=== PATIENT | female | born 1965 | race Caucasian/White ===

== ENCOUNTER 2016-08-13 02:53 | Emergency (ER) | payer SELFPAY ==
[~2016-08-13] VITALS: Ht 157.5 cm; Wt 108.0 kg
[2016-08-13 02:59] VITALS: Ht 157.5 cm; Wt 108.0 kg
[2016-08-13] MEDS ORDERED: SOD CHLORIDE 0.9% 500 ML IV STA (04:01)
[2016-08-13] MEDS ORDERED: ONDANSETRON 4 MG INJ IV STA (04:01)
[2016-08-13] MEDS ORDERED: morphine 4 MG/ML VIAL IV STA (04:01)
[2016-08-13 04:27] LABS: ADD UMIC YES; UR BILIRUBIN (Dip) NEGATIVE (NEGATIVE); UR BLOOD (Dip) TRACE (NEGATIVE); UR CLARITY CLEAR (CLEAR); UR COLOR LT. YELLOW (YELLOW); UR GLUCOSE (Dip) NEGATIVE (NEGATIVE); UR KETONES (Dip) NEGATIVE (NEGATIVE); UR LEUKOCYTE ESTERASE (Dip) NEGATIVE (NEGATIVE); UR NITRITE (Dip) NEGATIVE (NEGATIVE); UR TOTAL PROTEIN (Dip) NEGATIVE (NEGATIVE); UR UROBILINOGEN (Dip) 0.2 E.U./dL (0.1-1.0)
[2016-08-13 04:40] LABS: ADD SCAN DIFF NO
[2016-08-13 04:43] LABS: BASOPHILS % 0.6 % (0.0-2.0); EOSINOPHILS # 0.2 10^3/ul (0.0-0.5); EOSINOPHILS % 3.2 % (0.0-7.0); HEMOGLOBIN 12.8 g/dl (12.0-16.0); LYMPHOCYTES # 1.8 10^3/ul (0.8-2.9); LYMPHOCYTES % 25.2 % (15.0-51.0); MEAN CORPUSCULAR HEMOGLOBIN 30.5 pg (29.0-33.0); MEAN CORPUSCULAR HGB CONC 33.7 g/dl (32.0-37.0); MEAN CORPUSCULAR VOLUME 90.5 fl (82.0-101.0); MEAN PLATELET VOLUME 9.6 fl (7.4-10.4); MONOCYTE # 0.5 10^3/ul (0.3-0.9); MONOCYTES % 7.3 % (0.0-11.0); NEUTROPHIL # 4.5 10^3/ul (1.6-7.5); NEUTROPHILS % 63.3 % (39.0-77.0); PLATELET COUNT 298 10^3/UL (140-415); RED CELL DISTRIBUTION WIDTH 13.5 % (11.5-14.5); WHITE BLOOD COUNT 7.1 10^3/ul (4.8-10.8)
[2016-08-13 04:53] LABS: UR SQUAMOUS EPITHELIAL CELL MODERATE
[2016-08-13 04:58] LABS: ALBUMIN 4.6 g/dl (3.3-4.9); ALBUMIN/GLOBULIN RATIO 1.53; BILIRUBIN,INDIRECT 0.7 mg/dl (0-1.1); BILIRUBIN,TOTAL 0.7 mg/dl (0.2-1.3); CALCIUM 8.7 mg/dl (8.4-10.2); CREATININE 0.71 mg/dl (0.44-1.00); POTASSIUM 3.7 mmol/L (3.5-5.1); TOTAL PROTEIN 7.6 g/dl (6.1-8.1)
[2016-08-13] MEDS ORDERED: RANI150T9 PO ×2 (05:58→06:00)
[2016-08-13] MEDS ORDERED: ONDA4TAB14 PO ×2 (05:58→06:00)
[2016-08-13] MEDS ORDERED: TRAM50TA2 PO ×2 (05:58→06:00)
[2016-08-13 06:01] VITALS: BP 137/80; PULSE 55; RESP 17
--- NOTE | 2016-08-13 07:41 | RADRPT ---
PROCEDURE: Abdominal ultrasound, limited. CLINICAL INDICATION: Abdominal pain. TECHNIQUE: Multiple real-time images were acquired of the patient's right upper abdomen utilizing a high resolution transducer. COMPARISON: None FINDINGS: The liver demonstrates increased echogenicity and size measuring 18.6 cm. There is no focal mass or intrahepatic biliary ductal dilatation. The portal vein is patent. The patient is status post cho lecystectomy. The common bile duct measures 5.0 mm in maximal dimension. The pancreas is obscured by overlying bowel gas. No free fluid is identified. The right kidney is normal size and echogenicity measuring 12.0 cm. There is no focal renal mass or echogenic calculus identified. There is no obstructive uropathy. IMPRESSION: Enlarged liver with fatty infiltration. Status post cholecystectomy. Pancreas obscured by overlying bowel gas. .Aquiles Harrell MD, MD Date Time Electronically viewed and signed by .Aquiles Harrell MD, MD on 08/13/2016 05:22 .T/
--- NOTE | 2016-10-07 23:24 | ERD ---
ER Documentation Chief Complaint Date/Time DATE: 08/13/16 TIME: 23:23 Chief Complaint epigastric and RUQ abd pain with n/v HPI Where I feel with her back as epigastric and right upper abdominal mild nausea vomiting for 2 days. Pain is mild to moderate intensity. One episode of vomiting was nonbilious nonbloody. No fevers no chills. No other current complaints. ROS All systems reviewed and are negative except as per history of present illness. Medications Home Meds Active Scripts Ondansetron (Ondansetron Odt) 4 Mg Tab.rapdis, 4 MG PO Q6H Y for NAUSEA AND/OR VOMITING, #10 TAB Prov:RHEA ADORNOEL Serjio 08/13/16 Ranitidine Hcl* (Zantac*) 150 Mg Tablet, 150 MG PO BID Y for EPIGASTRIC PAIN, # 30 TAB Prov:YOVANI ADORNO. 08/13/16 Tramadol HCl (Tramadol HCl) 50 Mg Tablet, 50 MG PO Q4 Y for PAIN, #20 TAB Prov:YOVANI ADORNO 08/13/16 Allergies Allergies: Coded Allergies: No Known Allergy (Unverified , 08/13/16) PMhx/Soc History of Surgery: Yes (CHOLECYSTECTOMY) Anesthesia Reaction: No Hx Neurological Disorder: No Hx Respiratory Disorders: No Hx Cardiac Disorders: No Hx Psychiatric Problems: No Hx Miscellaneous Medical Probl: No Hx Alcohol Use: No Hx Substance Use: No Hx Tobacco Use: No Smoking Status: Never smoker Physical Exam Physical Exam Const: [] Head: Atraumatic Eyes: Normal Conjunctiva ENT: Normal External Ears, Nose and Mouth. Neck: Full range of motion..~ No meningismus. Resp: Clear to auscultation bilaterally Cardio: Regular rate and rhythm, no murmurs Abd: Soft, non tender, non distended. Normal bowel sounds Skin: No petechiae or rashes Back: No midline or flank tenderness Ext: No cyanosis, or edema Neur: Awake and alert Psych: Normal Mood and Affect Results 24 hrs Laboratory Tests Test 08/13/16 04:03 08/13/16 04:15 Urine Color LT. YELLOW Urine Clarity CLEAR Urine pH 6.0 Urine Specific [place] <=1.005 Urine Ketones NEGATIVE Urine Nitrite NEGATIVE Urine Bilirubin NEGATIVE Urine Urobilinogen 0.2 E.U./dL Urine Leukocyte Esterase NEGATIVE Urine Microscopic RBC 2-5/HPF Urine Microscopic WBC 0-2/HPF Urine Squamous Epithelial Cells MODERATE Urine Hemoglobin TRACE Urine Glucose NEGATIVE% Urine Total Protein NEGATIVE White Blood Count 7.110^3/ul Red Blood Count 4.2010^6/ul Hemoglobin 12.8g/dl Hematocrit 38.0% Mean Corpuscular Volume 90.5fl Mean Corpuscular Hemoglobin 30.5pg Mean Corpuscular Hemoglobin Concent 33.7g/dl Red Cell Distribution Width 13.5% Platelet Count 77832^3/UL Mean Platelet Volume 9.6fl Neutrophils % 63.3% Lymphocytes % 25.2% Monocytes % 7.3% Eosinophils % 3.2% Basophils % 0.6% Nucleated Red Blood Cells % 0.0/100WBC Neutrophils # 4.510^3/ul Lymphocytes # 1.810^3/ul Monocytes # 0.510^3/ul Eosinophils # 0.210^3/ul Basophils # 0.010^3/ul Nucleated Red Blood Cells # 0.010^3/ul Sodium Level 139mmol/L Potassium Level 3.7mmol/L Chloride Level 104mmol/L Carbon Dioxide Level 27mmol/L Anion Gap 12 Blood Urea Nitrogen 14mg/dl Creatinine 0.71mg/dl Glucose Level 97mg/dl Calcium Level 8.7mg/dl Total Bilirubin 0.7mg/dl Direct Bilirubin 0.00mg/dl Indirect Bilirubin 0.7mg/dl Aspartate Amino Transf (AST/SGOT) 18IU/L Alanine Aminotransferase (ALT/SGPT) 31IU/L Alkaline Phosphatase 103IU/L Total Protein 7.6g/dl Albumin 4.6g/dl Globulin 3.00g/dl Albumin/Globulin Ratio 1.53 Lipase 48U/L Current Medications Medications (Trade) Dose Ordered Sig/Rylie Route PRN Reason Start Time Stop Time Status Last Admin Dose Admin Sodium Chloride (NS) 500 ml @ 500 mls/hr Q1H STAT IV 08/13/16 04:01 08/13/16 06:02 DC 08/13/16 04:19 Morphine Sulfate (morphine) 4 mg ONCE STAT IV 08/13/16 04:01 08/13/16 04:02 DC 08/13/16 04:19 Ondansetron HCl (Zofran Inj) 4 mg ONCE STAT IV 6/20/17 04:01 08/13/16 04:02 DC 08/13/16 04:19 Procedures/MDM CBC: [no e/o of systemic infection or severe anemia] CMP: [no e/o severe acidosis, alkalosis, renal failure, diabetic ketoacidosis, liver disease] Lipase: [no e/o pancreatitis] PT/INR: [normal coagulation] Urine: [no e/o acute infection or hematuria] Medical decision-making: For admission with abdominal pain nonspecific uncertain etiology. Pain is since resolved. Patient be discharged home. Follow-up in 8 hours for serial abdominal exams. Departure Diagnosis: Primary Impression: Abdominal pain Abdominal location: epigastric Qualified Code: R10.13 - Epigastric pain Condition: Stable Patient Instructions: Abdominal Pain YOVANI ADORNO Oct 07, 2016 23:24
== END 2016-08-13 06:24 | disposition home or self-care (01) ==
LOC: E/R 02:53
DX: R10.13 Epigastric pain (principal); R11.2 Nausea with vomiting, unspecified
CPT/HCPCS: 36415; 76705; 80053; 81001; 83690; 85025; 96374; 96375; 99285; J2270; J2405; J7040

== ENCOUNTER 2017-02-20 00:01 | Emergency (ER) | payer SELFPAY ==
[~2017-02-20] VITALS: Ht 165.1 cm; Wt 107.1 kg
[~2017-02-20 00:01] MED LIST: ONDA4TAB14 PO; RANI150T9 PO; TRAM50TA2 PO
[2017-02-20 00:30] VITALS: Ht 165.1 cm; Wt 107.1 kg
[2017-02-20] MEDS ORDERED: DICYCLOMINE 20 MG INJ IM ONE (03:00)
--- NOTE | 2017-02-20 03:12 | ERD ---
ER Documentation Chief Complaint Chief Complaint Abd pain today, -n/v/d. "bloated" Tylenol taken at 7pm HPI This is a 51-year-old female with remote history of cholecystectomy who presents to the emergency room with 24 hours of symptoms including abdominal bloating and periumbilical abdominal cramping. She states postprandial symptoms. The nausea or vomiting. The patient states that she is passing stool and gas without much difficulty. No chest pain, no pleuritic pain, no mid back pain. Pain is approximately 3 out of 10 currently. A sales support specialist was used. ROS All systems reviewed and are negative except as per history of present illness. Medications Home Meds Active Scripts Ondansetron (Ondansetron Odt) 4 Mg Tab.rapdis, 4 MG PO Q6H Y for NAUSEA AND/OR VOMITING, #10 TAB Prov:DHRUV SAVAGE MD 02/20/17 Dicyclomine Hcl* (Bentyl*) 10 Mg Capsule, 10 MG PO QID Y for abdominal cramping , #12 CAP Prov:DHRUV SAVAGE MD 02/20/17 Ondansetron (Ondansetron Odt) 4 Mg Tab.rapdis, 4 MG PO Q6H Y for NAUSEA AND/OR VOMITING, #10 TAB Prov:YOVANI ADORNO 08/13/16 Ranitidine Hcl* (Zantac*) 150 Mg Tablet, 150 MG PO BID Y for EPIGASTRIC PAIN, # 30 TAB Prov:YOVANI ADORNO 08/13/16 Tramadol HCl (Tramadol HCl) 50 Mg Tablet, 50 MG PO Q4 Y for PAIN, #20 TAB Prov:YOVANI ADORNO 08/13/16 Allergies Allergies: Coded Allergies: No Known Allergy (Unverified , 08/13/16) PMhx/Soc History of Surgery: Yes (CHOLECYSTECTOMY) Anesthesia Reaction: No Hx Neurological Disorder: No Hx Respiratory Disorders: No Hx Cardiac Disorders: No Hx Psychiatric Problems: No Hx Miscellaneous Medical Probl: No Hx Alcohol Use: No Hx Substance Use: No Hx Tobacco Use: No FmHx Family History: No diabetes Physical Exam Vitals Vital Signs Date Time Temp Pulse Resp B/P Pulse Ox O2 Delivery O2 Flow Rate FiO2 02/20/17 03:20 98.3 65 18 121/66 97 Room Air 02/20/17 00:30 98.3 83 18 147/81 99 Physical Exam General: Well developed, well nourished, no acute distress Head: Normocephalic, atraumatic. Eyes: Pupils equally reactive, EOM intact ENT: Moist mucous membranes Neck: Supple, no lymphadenopathy Respiratory: Lungs clear bilaterally, no distress Cardiovascular: RRR, no murmurs, rubs, or gallops Abdominal: Soft, mild generalized tenderness without rebound or guarding, negative Espinoza's, no tenderness to McBurney's point : Deferred MSK: No edema, no unilateral swelling, 5/5 strength Neurologic: Alert and oriented, moving all extremities, normal speech, no focal weakness, no cerebellar signs Skin: No rash Psych: Normal mood Result Diagram: 02/20/1731402/20/17314 Results 24 hrs Laboratory Tests Test 02/20/17 03:15 02/20/17 03:26 White Blood Count 10.410^3/ul Red Blood Count 4.2910^6/ul Hemoglobin 12.3g/dl Hematocrit 36.8% Mean Corpuscular Volume 85.8fl Mean Corpuscular Hemoglobin 28.7pg Mean Corpuscular Hemoglobin Concent 33.4g/dl Red Cell Distribution Width 13.5% Platelet Count 54444^3/UL Mean Platelet Volume 9.4fl Neutrophils % 78.6% Lymphocytes % 13.7% Monocytes % 5.9% Eosinophils % 1.2% Basophils % 0.3% Nucleated Red Blood Cells % 0.0/100WBC Neutrophils # 8.210^3/ul Lymphocytes # 1.410^3/ul Monocytes # 0.610^3/ul Eosinophils # 0.110^3/ul Basophils # 0.010^3/ul Nucleated Red Blood Cells # 0.010^3/ul Sodium Level 139mmol/L Potassium Level 4.1mmol/L Chloride Level 105mmol/L Carbon Dioxide Level 25mmol/L Anion Gap 13 Blood Urea Nitrogen 15mg/dl Creatinine 0.70mg/dl Glucose Level 124mg/dl Calcium Level 8.3mg/dl Total Bilirubin 0.6mg/dl Direct Bilirubin 0.00mg/dl Indirect Bilirubin 0.6mg/dl Aspartate Amino Transf (AST/SGOT) 15IU/L Alanine Aminotransferase (ALT/SGPT) 25IU/L Alkaline Phosphatase 106IU/L Total Protein 7.6g/dl Albumin 3.9g/dl Globulin 3.70g/dl Albumin/Globulin Ratio 1.05 Lipase 74U/L Serum HCG, Qualitative NEGATIVE Bedside Urine pH (LAB) 5.5 Bedside Urine Protein (LAB) Negative Bedside Urine Glucose (UA) Negative Bedside Urine Ketones (LAB) Negative Bedside Urine Blood Trace-intact Bedside Urine Nitrite (LAB) Negative Bedside Urine Leukocyte Esterase (L Negative Current Medications Medications (Trade) Dose Ordered Sig/Rylie Route PRN Reason Start Time Stop Time Status Last Admin Dose Admin Dicyclomine HCl (Bentyl) 10 mg ONCE ONCE IM 02/20/17 03:00 02/20/17 03:01 DC 02/20/17 03:33 Procedures/MDM LAB INTERPRETATION: No leukocytosis no evidence of hepatobiliary obstruction MEDICAL DECISION MAKING: The patient presents to the emergency room with abdominal bloating, mild abdominal pain that is postprandial. Most likely indigestion, gas versus gastritis versus peptic ulcer disease. The patient is status post cholecystectomy. No evidence of biliary colic. No signs or symptoms concerning for bowel obstruction. She otherwise has a benign abdominal exam. Very low pretest probability for acute intra-abdominal process such as appendicitis, obstruction among others. I do not believe CT imaging is appropriate or necessary at this time. The patient will benefit from laboratory analysis and symptom control. Outpatient GI follow-up may be necessary. I discussed this with the patient. She verbalized understanding. ER COURSE: The patient was given Bentyl. The patient has complete resolution of symptoms. Repeat abdominal exam is benign. At this point I do not believe CT imaging is necessary. Outpatient follow-up with primary care physician and potentially gastroenterology would be appropriate. Patient's blood pressure was elevated (>120/80) but appears stable without evidence of hypertensive emergency or urgency. The patient was counseled about the risks of hypertension and urged to pursue outpatient monitoring and therapy within a week with their primary care physician. I kept the patient and/or family informed of laboratory and diagnostic imaging results throughout the emergency room course. DISPOSITION PLAN: We discussed follow up with the patient's primary care doctor within 24 to 48 hours as needed. We also discussed return to the emergency room for worsening symptoms or worsening condition. Outpatient referral: [facility] as needed Discharge Medications: Bentyl, Zofran Departure Diagnosis: Primary Impression: Abdominal pain Abdominal location: generalized Qualified Code: R10.84 - Generalized abdominal pain Condition: Stable DHRUV SAVAGE MD Feb 20, 2017 03:12
[2017-02-20 03:20] VITALS: BP 121/66; PULSE 65; RESP 18; TEMP 98.3
[2017-02-20 03:26] LABS: URINE BLOOD (Dip) POC Trace-intact (NEGATIVE)
[2017-02-20 03:54] LABS: BASOPHILS % 0.3 % (0.0-2.0); EOSINOPHILS # 0.1 10^3/ul (0.0-0.5); EOSINOPHILS % 1.2 % (0.0-7.0); HEMATOCRIT 36.8 % (37.0-47.0); HEMOGLOBIN 12.3 g/dl (12.0-16.0); LYMPHOCYTES # 1.4 10^3/ul (0.8-2.9); LYMPHOCYTES % 13.7 % (15.0-51.0); MEAN CORPUSCULAR HEMOGLOBIN 28.7 pg (29.0-33.0); MEAN CORPUSCULAR HGB CONC 33.4 g/dl (32.0-37.0); MEAN CORPUSCULAR VOLUME 85.8 fl (82.0-101.0); MEAN PLATELET VOLUME 9.4 fl (7.4-10.4); MONOCYTE # 0.6 10^3/ul (0.3-0.9); MONOCYTES % 5.9 % (0.0-11.0); NEUTROPHIL # 8.2 10^3/ul (1.6-7.5); NEUTROPHILS % 78.6 % (39.0-77.0); PLATELET COUNT 314 10^3/UL (140-415); RED BLOOD COUNT 4.29 10^6/ul (4.20-5.40); RED CELL DISTRIBUTION WIDTH 13.5 % (11.5-14.5); WHITE BLOOD COUNT 10.4 10^3/ul (4.8-10.8)
[2017-02-20 04:00] LABS: ALBUMIN 3.9 g/dl (3.3-4.9); ALBUMIN/GLOBULIN RATIO 1.05; BILIRUBIN,INDIRECT 0.6 mg/dl (0-1.1); BILIRUBIN,TOTAL 0.6 mg/dl (0.2-1.3); CALCIUM 8.3 mg/dl (8.4-10.2); CREATININE 0.7 mg/dl (0.44-1.00); POTASSIUM 4.1 mmol/L (3.5-5.1); TOTAL PROTEIN 7.6 g/dl (6.1-8.1)
[2017-02-20] MEDS ORDERED: DICY10CA60 PO (04:11)
[2017-02-20] MEDS ORDERED: ONDA4TAB14 PO (04:11)
== END 2017-02-20 04:44 | disposition home or self-care (01) ==
LOC: E/R 00:01
DX: R10.84 Generalized abdominal pain (principal)
CPT/HCPCS: 36415; 80053; 81003; 83690; 84703; 85025; 96372; 99284; J0500